=== PATIENT | female | born 1970 | race African-American/Black ===

== ENCOUNTER → 2017-03-12 | Day surgery (SDC) | payer OTHER ==
[~2017-03-12] MED LIST: FERROUS SULFAT325 MG; HYDROCHLOROTHIA25 MG PO; NAPROXEN375 M1 PO; PROBIOTIC1 EAC1 PO; SINGULAIR PO; ZYRTEC10 M1 PO
--- NOTE | ~2017-03-12 | OR ---
Unit #: [id number] #: [id number] Patient: DANIEL MOISE [id number] [address] [id number] O MR#: [id number] NAME: DANIEL MOISE ROOM: Date of Procedure: 03/12/2017 Admission Date: 03/12/2017 Surgeon: Shen Villafuerte M.D. : 1970 Attending Physician: Shen Villafuerte M.D. Primary Care Physician: Isabelle Mathis M.D. OPERATIVE REPORT PROCEDURE PERFORMED Colonoscopy to cecum. INDICATIONS 1. Personal history of colon polyps. 2. Chronic constipation. 3. Second-degree relatives with colon cancer. MEDICATIONS Monitored anesthesia. POSTOPERATIVE FINDINGS 1. Good prep. No polyps or masses. Exam was normal. 2. Colonoscopy in 5 years given her history. DESCRIPTION OF PROCEDURE The patient was explained of the procedure, risks, and benefits, along with risks and benefits of anesthesia. She was brought to the endoscopy room. Propofol anesthesia was given. Rectal exam was done, which was normal. Colonoscope was lubricated, passed up the rectum, advanced under direct vision all the way to the cecum. Cecum was identified by ileocecal valve and appendiceal orifice. I then started to pull the scope out carefully looking. No polyps, masses, or colitis were seen. On retroflexion of the rectum, small hemorrhoids were seen. Scope was gently pulled out. She tolerated it well. Dictated by... Prince Castellanos/rory TD: 03/12/2017 13:47 JOB #: [id number] CC: Shen Villafuerte M.D. Primary Care Physician Unit #: [id number] #: [id number] Patient: DANIEL MOISE OPERATIVE REPORT Page 1 of 1 X Shen Villafuerte MD PROCEDURE OPERATIVE NOTE
== END | disposition home or self-care (01) ==
LOC: COPS 10:19
DX: K64.9 Unspecified hemorrhoids (principal); K59.09 Other constipation; D64.9 Anemia, unspecified; E66.01 Morbid (severe) obesity due to excess calories; J45.909 Unspecified asthma, uncomplicated; I10 Essential (primary) hypertension; Z80.0 Family history of malignant neoplasm of digestive organs; Z86.010 Personal history of colon polyps; Z68.43 Body mass index [BMI] 50.0-59.9, adult; Z98.890 Other specified postprocedural states; Z79.1 Long term (current) use of non-steroidal anti-inflammatories (NSAID); Z79.899 Other long term (current) drug therapy; Z98.51 Tubal ligation status
CPT/HCPCS: 84703